=== PATIENT | male | born 1950 | race African-American/Black ===

== ENCOUNTER 2017-06-14 06:06 | Emergency (ER) | payer MEDICARE, OTHER ==
[~2017-06-14] VITALS: Ht 177.8 cm; Wt 69.0 kg
[2017-06-14 06:11] VITALS: BP 169/72
== END 2017-06-14 20:02 | disposition left against medical advice (07) ==
LOC: ER 10:22
DX: Z53.21 Procedure and treatment not carried out due to patient leaving prior to being seen by health care provider (principal)